=== PATIENT | male | born 1965 | race Caucasian/White ===

== ENCOUNTER 2021-10-08 13:59 | Emergency (ER) | payer BC | END 2021-10-08 15:15 | disposition home or self-care (01) | LOC: MW.ED 13:59 | DX: H60.501 Unspecified acute noninfective otitis externa, right ear (principal); H66.91 Otitis media, unspecified, right ear | CPT/HCPCS: 99282; 99283 ==

== ENCOUNTER 2022-02-14 18:38 | Emergency (ER) | payer BC ==
[2022-02-14] MEDS ORDERED: Cephalexin 500 MG Cap PO ONE (19:26)
== END 2022-02-14 19:43 | disposition home or self-care (01) ==
LOC: MW.ED 18:38
DX: L03.115 Cellulitis of right lower limb (principal); F17.210 Nicotine dependence, cigarettes, uncomplicated
CPT/HCPCS: 99283; A9270